=== PATIENT | female | born 1955 | race Caucasian/White ===

== ENCOUNTER → 2021-02-11 10:31 | Outpatient (CLI) | payer MEDICARE, SELFPAY ==
--- NOTE | 2021-02-11 10:36 | DI.RAD.S_ITS ---
PROCEDURE: XR CERVICAL SPINE 4V OR 5V INDICATIONS: NECK PAIN TECHNIQUE: 5 views of the cervical spine acquired. COMPARISON: None. FINDINGS: Jewelry artifact is noted. Bones: No fractures or dislocations to the superior aspect of the C7 level. Mild disc height loss at C5-6 with endplate osteophytosis. Uncovertebral/facet arthrosis causing mild bilateral neural foraminal narrowing. Soft tissues: No prevertebral soft tissue swelling. IMPRESSION: No acute osseous abnormality. Dictated by: Jose Romero M.D. on 02/11/2021 at 11:15 Approved by: Jose Romero M.D. on 02/11/2021 at 11:20
--- NOTE | 2021-02-11 10:36 | DI.RAD.S_ITS ---
PROCEDURE: XR LUMBAR SPINE MIN 4V INDICATIONS: BACK PAIN TECHNIQUE: 5 views of the lumbar spine were acquired, including bilateral oblique views COMPARISON: None. FINDINGS: Bones: 5 nonrib-bearing vertebrae are present. No traumatic subluxation. The vertebral body heights are maintained. Mild to moderate disc height loss at L5-S1. Facet arthrosis, most prominent at L4 through S1. No suspicious bony lesions. Soft tissues: Overlying bowel gas pattern is normal. A lap band is noted. No suspicious soft tissue calcifications. Oblique images: No pars defects. IMPRESSION: No acute osseous abnormality. Dictated by: Jose Romero M.D. on 02/11/2021 at 11:22 Approved by: Jose Romero M.D. on 02/11/2021 at 11:26
== END ==
PROVIDERS: PCP Physician Assistant; Referring Provider Physical Medicine & Rehabilitation; Visit Provider Physical Medicine & Rehabilitation
DX: M54.2 Cervicalgia (principal); M54.9 Dorsalgia, unspecified; M47.812 Spondylosis without myelopathy or radiculopathy, cervical region; M47.26 Other spondylosis with radiculopathy, lumbar region; M47.27 Other spondylosis with radiculopathy, lumbosacral region; M51.16 Intervertebral disc disorders with radiculopathy, lumbar region; E66.01 Morbid (severe) obesity due to excess calories; Z68.38 Body mass index [BMI] 38.0-38.9, adult; Z95.0 Presence of cardiac pacemaker
CPT/HCPCS: 72050; 72110; 99214